=== PATIENT | male | born 1985 | race Hispanic/Latino ===

== ENCOUNTER 2019-09-09 10:51 | Emergency (ER) | payer SELFPAY ==
[2019-09-09] MEDS ORDERED: SODIUM CHLORIDE 0.9% 1000ML 1,000 ML IV ONE (11:21)
[2019-09-09 11:44] LABS: BASOPHILS % (AUTO) 0.7 % (0.0-5.0); EOSINOPHILS % (AUTO) 0.5 % (0.0-8.0); HEMATOCRIT 44.8 % (42-54); LYMPHOCYTES % (AUTO) 15.8 % (21.0-51.0); MEAN CORPUSCULAR HEMOGLOBIN 27.2 pg (27.0-33.0); MEAN CORPUSCULAR HGB CONC 33.3 g/dL (32.0-36.0); MEAN CORPUSCULAR VOLUME 81.7 fL (79-99); PLATELET COUNT (AUTO) 160 K/uL (130-400); RED BLOOD CELL COUNT(AUTO) 5.48 MIL/uL (4.50-6.20); RED CELL DISTRIBUTION WIDTH 13.2 % (11.0-15.5); WHITE BLOOD COUNT (AUTO) 9.2 K/uL (4.8-10.8)
[2019-09-09 11:52] LABS: CREATININE 0.8 mg/dL (0.5-1.5); POTASSIUM 4.1 mmol/L (3.5-5.1)
[2019-09-09 11:56] LABS: ALBUMIN 3.9 g/dL (3.5-5.0); TOTAL PROTEIN, SERUM 7.8 g/dL (6.0-8.3)
== END 2019-09-09 12:13 | disposition home or self-care (01) ==
LOC: EDH 10:51
DX: F14.10 Cocaine abuse, uncomplicated (principal); E11.9 Type 2 diabetes mellitus without complications; M79.10 Myalgia, unspecified site
CPT/HCPCS: 36415; 80053; 82010; 82550; 84484; 85025; 93005; 99285; J7030

== ENCOUNTER 2019-10-13 11:25 | Emergency (ER) | payer OTHER ==
[2019-10-13] MEDS ORDERED: LIDOCAINE HCL 2% VISCOUS 15 ML UDCUP ONE (11:48)
[2019-10-13] MEDS ORDERED: FLUCONAZOLE 100 MG TAB ONE (11:55)
[2019-10-13] MEDS ORDERED: ACETAMINOPHEN 325 MG TAB ONE (11:55)
== END 2019-10-13 12:34 | disposition home or self-care (01) ==
LOC: EDH 11:25
DX: N47.6 Balanoposthitis (principal); E11.9 Type 2 diabetes mellitus without complications; Z72.0 Tobacco use

== ENCOUNTER 2022-10-17 14:34 | Emergency (ER) | payer SELFPAY | END 2022-10-17 15:46 | disposition left against medical advice (07) | LOC: EDH 14:34 | DX: R05.9 Cough, unspecified (principal); Z53.21 Procedure and treatment not carried out due to patient leaving prior to being seen by health care provider ==

== ENCOUNTER 2023-01-14 02:08 | Emergency (ER) | payer OTHER ==
[~2023-01-14] VITALS: Ht 188 cm; Wt 99.3 kg
[2023-01-14 02:30] VITALS: BP 134/79
[2023-01-14 02:50] LABS: BASOPHILS % (AUTO) 0.2 % (0.0-5.0); HEMATOCRIT 41.1 % (42-54); LYMPHOCYTES % (AUTO) 21.5 % (21.0-51.0); MEAN CORPUSCULAR HEMOGLOBIN 26.2 pg (27.0-33.0); MEAN CORPUSCULAR HGB CONC 32.6 g/dL (32.0-36.0); MEAN CORPUSCULAR VOLUME 80.4 fL (79-99); MONOCYTES % (AUTO) 6.8 % (3.0-13.0); NEUTROPHILS % (AUTO) 70.1 % (40.0-77.0); PLATELET COUNT (AUTO) 156 K/uL (130-400); RED BLOOD CELL COUNT(AUTO) 5.11 MIL/uL (4.50-6.20); WHITE BLOOD COUNT (AUTO) 8.3 K/uL (4.8-10.8)
[2023-01-14 03:02] LABS: CREATININE 0.9 mg/dL (0.5-1.5); POTASSIUM 3.6 mmol/L (3.5-5.1); TOTAL PROTEIN, SERUM 7.2 g/dL (6.0-8.3)
[2023-01-14] MEDS ORDERED: IBUP-1493 PO (04:13)
[2023-01-14] MEDS ORDERED: CEPH500T PO (04:13)
[2023-01-14] MEDS ORDERED: METF-444 PO (04:13)
[2023-01-14 04:16] LABS: APPEARANCE,URINE CLEAR (CLEAR); BILIRUBIN,URINE NEGATIVE (NEGATIVE); COLOR,URINE COLORLESS (YELLOW); GLUCOSE, URINE (UA) >=1000 mg/dL (NEGATIVE); KETONES,URINE NEGATIVE (NEGATIVE); LEUKOCYTE ESTERASE ,URINE 75 Leu/uL (NEGATIVE); NITRATE,URINE NEGATIVE (NEGATIVE); OCCULT BLOOD,URINE NEGATIVE (NEGATIVE); PH,URINE 5.5 (5.0-8.0); PROTEIN,URINE NEGATIVE (NEGATIVE); UROBILINOGEN,URINE 0.2 mg/dL (0.2-1.0)
[2023-01-14 04:17] LABS: AMPHET/METH SCREEN,URINE NEGATIVE (NEGATIVE); BARBITURATE SCREEN, URINE NEGATIVE (NEGATIVE); BENZODIAZEPINES SCREEN,URINE NEGATIVE (NEGATIVE); CANNABINOID SCREEN,URINE NEGATIVE (NEGATIVE); COCAINE SCREEN,URINE POSITIVE (NEGATIVE); OPIATE SCREEN,URINE NEGATIVE (NEGATIVE); PHENCYCLIDINE SCREEN,URINE NEGATIVE (NEGATIVE)
[2023-01-14 04:18] LABS: SQUAMOUS EPITHELIAL CELL,UR RARE /HPF (0-2)
== END 2023-01-14 04:30 | disposition home or self-care (01) ==
LOC: EDH 02:08
DX: L02.413 Cutaneous abscess of right upper limb (principal); L02.91 Cutaneous abscess, unspecified; E11.65 Type 2 diabetes mellitus with hyperglycemia; F14.10 Cocaine abuse, uncomplicated
CPT/HCPCS: 36415; 80053; 80305; 81001; 85025; 87088

== ENCOUNTER 2023-11-20 10:31 | Emergency (ER) | payer BC, OTHER ==
[~2023-11-20] VITALS: Ht 188 cm; Wt 127.0 kg
[~2023-11-20 10:31] MED LIST: CEPH500T PO; IBUP-1493 PO; METF-444 PO
[2023-11-20] MEDS ORDERED: SOLU-MEDROL 125MG VIAL IM ONE (11:00)
[2023-11-20] MEDS ORDERED: KETOROLAC 60 MG VIAL (30MG/ML) IM ONE (11:00)
[2023-11-20 11:10] LABS: RAPID GROUP A STREP negative (NEGATIVE)
[2023-11-20 11:20] LABS: COVID19 (SARS ANTIGEN RAPID) PRESUMPTIVE NEGATIVE (NEGATIVE); INFLUENZA TYPE A Negative For Type A (NEGATIVE); INFLUENZA TYPE B Negative For Type B (NEGATIVE)
[2023-11-20] MEDS ORDERED: MOXIOS OD (11:51)
[2023-11-20] MEDS ORDERED: METH4TAB3 PO (11:51)
[2023-11-20] MEDS ORDERED: BENZ-39 PO (11:51)
[2023-11-20] MEDS ORDERED: ALBUHFA IH (11:51)
[2023-11-20 12:01] VITALS: BP 136/78; PULSE 78; RESP 18; O2SAT 98
== END 2023-11-20 12:02 | disposition home or self-care (01) ==
LOC: EDH 10:31
DX: J06.9 Acute upper respiratory infection, unspecified (principal); R05.9 Cough, unspecified; H10.9 Unspecified conjunctivitis; E11.9 Type 2 diabetes mellitus without complications; Z20.822 Contact with and (suspected) exposure to COVID-19
CPT/HCPCS: 99284; 87426; 87880; 87804 ×2; 96372 ×2; J2930; J1885

== ENCOUNTER 2024-06-04 16:06 | Emergency (ER) | payer BC ==
[~2024-06-04] VITALS: Ht 188 cm; Wt 113.4 kg
[~2024-06-04 16:06] MED LIST changes: +ALBUHFA IH; +BENZ-39 PO; +METH4TAB3 PO; +MOXIOS OD
[2024-06-04 16:41] LABS: HEMATOCRIT 39.9 % (42-54); MEAN CORPUSCULAR HEMOGLOBIN 26.5 pg (27.0-33.0); MEAN CORPUSCULAR HGB CONC 33.6 g/dL (32.0-36.0); MEAN CORPUSCULAR VOLUME 78.9 fL (79-99); PLATELET COUNT (AUTO) 243 K/uL (130-400); RED BLOOD CELL COUNT(AUTO) 5.06 MIL/uL (4.50-6.20); RED CELL DISTRIBUTION WIDTH 12.4 % (11.0-15.5); WHITE BLOOD COUNT (AUTO) 14.6 K/uL (4.8-10.8)
[2024-06-04 17:01] LABS: POTASSIUM 3.8 mmol/L (3.5-5.1)
[2024-06-04] MEDS: CLINDAMYCIN IVPB 600MG/50ML 50 ML IV STA (17:09)
[2024-06-04] MEDS: KETOROLAC 30MG VIAL (30MG/ML) IVP ONE (17:09)
[2024-06-04] MEDS: 0.9%NACL 1000ML 1,000 ML IV ONE (17:09)
[2024-06-04] MEDS: INSULIN HUMULIN R 100 UNIT/ML 3ML IV STA (17:21)
[2024-06-04 17:42] LABS: BASOPHILS # (AUTO) 0.02 K/uL (0.00-0.20); BASOPHILS % (AUTO) 0.1 % (0.0-5.0); EOSINOPHILS # (AUTO) 0.09 K/uL (0.00-0.70); EOSINOPHILS % (AUTO) 0.6 % (0.0-8.0); IMMATURE GRANULOCYTE ABSOLUTE 0.06 K/uL (0-1); LYMPHOCYTES # (AUTO) 1.8 K/uL (1.0-4.8); LYMPHOCYTES % (AUTO) 12.5 % (21.0-51.0); MONOCYTES # (AUTO) 0.9 K/uL (0.1-1.0); MONOCYTES % (AUTO) 6.2 % (3.0-13.0); NEUTROPHILS # (AUTO) 11.6 K/uL (1.8-7.7); NEUTROPHILS % (AUTO) 80.2 % (40.0-77.0)
[2024-06-04] MEDS ORDERED: CLIN-141 PO (18:46)
[2024-06-04] MEDS ORDERED: ACET-2079 PO (18:46)
[2024-06-04 19:26] VITALS: BP 136/90; PULSE 84; RESP 18; O2SAT 98
[2024-06-06] MEDS ORDERED: CLIN-141 PO (19:54)
[2024-06-06] MEDS ORDERED: ACET-2079 PO (19:54)
[2024-06-06] MEDS ORDERED: INSU100V3 INJ (22:09)
[2024-06-06] MEDS ORDERED: PANT40TA55 PO (22:09)
[2024-06-06] MEDS ORDERED: PRED20TA3 PO (22:09)
[2024-06-06] MEDS ORDERED: METF-444 PO (22:09)
[2024-06-06] MEDS ORDERED: TRAZ-187 PO (22:09)
== END 2024-06-04 19:27 | disposition home or self-care (01) ==
LOC: EDH 16:06
DX: L02.413 Cutaneous abscess of right upper limb (principal); L02.212 Cutaneous abscess of back [any part, except buttock and flank]; E86.0 Dehydration; E87.1 Hypo-osmolality and hyponatremia; E11.65 Type 2 diabetes mellitus with hyperglycemia; Z79.84 Long term (current) use of oral hypoglycemic drugs; Z79.899 Other long term (current) drug therapy
CPT/HCPCS: 99284; 96365; 96375; 80048; 85025; 87040; 82948 ×2; 83605; 82010; 36415; J1815; J7030; J1885; J3490